=== PATIENT | male | born 1945 | race Caucasian/White ===

== ENCOUNTER 2021-05-25 20:18 | Observation (INO) | payer OTHER ==
[~2021-05-25] VITALS: Ht 175.3 cm; Wt 70.3 kg
[~2021-05-25 20:18] MED LIST: AMLODIPINE BESYL5 MG PO; CATAPRES 0.1MG0.1 MG PO; LISINOPRIL10 MG PO; LISINOPRIL40 MG PO; LO-DOSE ASPIRIN81 MG PO; NORCO 7.5-3251 EACH PO; NORVASC10 MG PO; OMNICEF 300 MG300 MG PO; PHENERGAN 12.12.5 M1 PO; PROAIR HFA8.5 GM INH; WIXELA 500-501 EACH INH; ZOCOR20 MG PO
[2021-05-25 20:59] LABS: HEMOGLOBIN 14.3 gm/dl (14.0-17.5); RED BLOOD COUNT 4.3 M/UL (4.20-5.50)
[2021-05-25 21:23] LABS: BORDETELLA PARAPERTUSSIS Not Detected (Not Detectd); BORDETELLA PERTUSSIS Not Detected (Not Detectd); CHLAMYDIA PNEUMONIAE Not Detected (Not Detectd); CORONAVIRUS HKU1 Not Detected (Not Detectd); CORONAVIRUS NL63 Not Detected (Not Detectd); CORONAVIRUS OC43 Not Detected (Not Detectd); CORONOAVIRUS 229E Not Detected (Not Detectd); HUMAN METAPNEUMOVIRUS Not Detected (Not Detectd); HUMAN RHINOVIRUS/ENTEROVIRUS Not Detected (Not Detectd); INFLUENZA A Not Detected (Not Detectd); INFLUENZA B Not Detected (Not Detectd); MYCOPLASMA PNEUMONIAE Not Detected (Not Detectd); PARAINFLUENZA VIRUS 1 Not Detected (Not Detectd); PARAINFLUENZA VIRUS 2 Not Detected (Not Detectd); PARAINFLUENZA VIRUS 3 Not Detected (Not Detectd); PARAINFLUENZA VIRUS 4 Not Detected (Not Detectd); RESPIRATORY SYNCYTIAL VIRUS Not Detected (Not Detectd)
[2021-05-25 22:21] LABS: SARS-CoV-2 NOT DETECTED (Not Detectd)
[2021-05-26] MEDS ORDERED: ZOFRAN 4 MG TAB4 MG PO (00:34)
[2021-05-26] MEDS ORDERED: DOXYCYCLINE HY100 M2 PO (00:34)
[2021-05-26] MEDS ORDERED: MEDROL DOSEPAK 24 MG PO (00:34)
[2021-05-26] MEDS ORDERED: ADVAIR 500-501 EACH INH (04:50)
[2021-05-26 08:06] LABS: RED BLOOD COUNT 4.2 M/UL (4.20-5.50); WHITE BLOOD COUNT 10.3 K/UL (4.5-11.0)
[2021-05-26 08:38] LABS: BUN/CREATININE RATIO 16 (0-10)
== END 2021-05-27 14:17 | disposition home or self-care (01) ==
LOC: ER1 20:18 → CDU 05-26 03:05 → M/S 05-26 03:05
PROVIDERS: Physician Assistant Medical; ADMIT Internal Medicine
DX: A08.4 Viral intestinal infection, unspecified (principal); I10 Essential (primary) hypertension; R73.9 Hyperglycemia, unspecified; J44.9 Chronic obstructive pulmonary disease, unspecified; E78.5 Hyperlipidemia, unspecified; Z20.822 Contact with and (suspected) exposure to COVID-19; Z90.5 Acquired absence of kidney; Z80.0 Family history of malignant neoplasm of digestive organs; Z87.891 Personal history of nicotine dependence
CPT/HCPCS: 0240U; 36415; 71045; 80048; 80053; 81001; 82009; 82550; 82553; 82962; 83036; 83605; 83690; 84484; 85025; 87633; 93005; 94640; 94664; 94760; 96372; 96374; 96375; 96376; 99285; G0378; J1650; J2405; J2550; Q9967

== ENCOUNTER 2021-06-04 15:12 | Emergency (ER) | payer OTHER ==
[~2021-06-04 15:12] MED LIST changes: +ADVAIR 500-501 EACH INH; +DOXYCYCLINE HY100 M2 PO; +MEDROL DOSEPAK 24 MG PO; +ZOFRAN 4 MG TAB4 MG PO
[2021-06-04 17:25] LABS: HEMOGLOBIN 13.5 gm/dl (14.0-17.5); RED BLOOD COUNT 4.07 M/UL (4.20-5.50); WHITE BLOOD COUNT 8.2 K/UL (4.5-11.0)
[2021-06-04] MEDS ORDERED: ZOFRAN 4 MG TAB4 MG PO (17:41)
[2021-06-04] MEDS ORDERED: PROTONIX40 MG PO (17:45)
[2021-06-05] MEDS ORDERED: VIBRAMYCIN100 MG PO (17:27)
[2021-06-05] MEDS ORDERED: PROTONIX40 MG PO (17:27)
== END 2021-06-04 17:58 | disposition home or self-care (01) ==
LOC: ER1 15:12
PROVIDERS: Physician Assistant
DX: R10.13 Epigastric pain (principal); R11.0 Nausea; R63.0 Anorexia; I12.9 Hypertensive chronic kidney disease with stage 1 through stage 4 chronic kidney disease, or unspecified chronic kidney disease; N18.9 Chronic kidney disease, unspecified; E78.5 Hyperlipidemia, unspecified
CPT/HCPCS: 80053; 83690; 85025; 96374; 99283; C9113